=== PATIENT | female | born 1970 | race Caucasian/White ===

== ENCOUNTER 2017-02-16 19:26 | Emergency (ER) | payer SELFPAY ==
[~2017-02-16] VITALS: Ht 154.9 cm; Wt 80.0 kg
[~2017-02-16 19:26] MED LIST: IBUP600T26 PO; MOTR200T PO; ULTR50TA PO
[2017-02-16 19:28] VITALS: BP 153/94; PULSE 67; RESP 16; TEMP 98.9; O2SAT 98
[2017-02-16 20:28] VITALS: BP 166/90; PULSE 65; RESP 16; O2SAT 99
--- NOTE | 2017-02-16 20:55 | PD ---
HPI Chief Complaint: Skin Problem Time Seen by Provider: 20:22 Travel History International Travel<30 days: No Contact w/Intl Traveler<30days: No Traveled to known affect area: No History of Present Illness HPI patient states started feeling cheek soreness on sunday , then 2 days ago a red rash to cheeks, which is getting more intense and is only over cheeks...pt denies any fever/other rash in body/sore throat/shankar/cp/abdpain/n/v/d/.... no pcp denies allergies pmhx denies pshx c section PFSH Past Medical History Arthritis: No Anxiety: No Depression: Yes Heart Rhythm Problems: No Cancer: No Cardiovascular Problems: Yes High Cholesterol: No Chemotherapy: No Chest Pain: No Congestive Heart Failure: No Cerebrovascular Accident: No Endocrine: No Gastrointestinal Disorders: No Genitourinary: Yes Headaches: Yes Hypertension: No Immune Disorder: No Implanted Vascular Access Dvce: No Kidney Stones: Yes Musculoskeletal: Yes Neurologic: Yes Psychiatric: Yes Reproductive: No Respiratory: No Immunizations Current: Yes Migraines: No Radiation Therapy: No Renal Failure: No Seizures: No Tetanus Vaccination: < 5 Years Influenza Vaccination: No ?: Unknown Past Surgical History Abdominal Surgery: No Cardiac Surgery: No Ear Surgery: No Endocrine Surgery: No Eye Surgery: No Genitourinary Surgery: No Gynecologic Surgery: Yes (C SECTION) Neurologic Surgery: No Oral Surgery: No Pacemaker: No Thoracic Surgery: No Other Surgery: Yes Social History Alcohol Use: No Tobacco Use: No Substance Use: No Allergies-Medications (Allergen,Severity, Reaction): Coded Allergies: No Known Allergies (Unverified Adverse Reaction, Unknown, 02/16/17) Reported Meds & Prescriptions Reported Meds & Active Scripts Active No Active Prescriptions or Reported Medications Review of Systems Except as stated in HPI: all other systems reviewed are Neg General / Constitutional: No: Fever Eyes: No: Visual changes HENT: No: Headaches Cardiovascular: No: Chest Pain or Discomfort Respiratory: No: Shortness of Breath Gastrointestinal: No: Abdominal Pain Genitourinary: No: Dysuria Musculoskeletal: No: Pain Skin: Positive Rash Neurologic: No: Weakness Psychiatric: No: Depression Endocrine: No: Polydipsia Hematologic/Lymphatic: No: Easy Bruising Physical Exam Narrative GENERAL: SKIN: Warm and dry. erythematous/indurated rash over bilateral cheeks well demarcated and tt palpation HEAD: Atraumatic. Normocephalic. EYES: Pupils equal and round. No scleral icterus. No injection or drainage. ENT: No nasal bleeding or discharge. Mucous membranes pink and moist. no angioedema, stridor or wheezing...no hives elsewhere NECK: Trachea midline. No JVD. no lad CARDIOVASCULAR: Regular rate and rhythm. RESPIRATORY: No accessory muscle use. Clear to auscultation. Breath sounds equal bilaterally. GASTROINTESTINAL: Abdomen soft, non-tender, nondistended MUSCULOSKELETAL: Extremities without clubbing, cyanosis, or edema. No obvious deformities. NEUROLOGICAL: Awake and alert. No obvious cranial nerve deficits. Motor grossly within normal limits. Five out of 5 muscle strength in the arms and legs. Normal speech. PSYCHIATRIC: Appropriate mood and affect; insight and judgment normal. Data Data Last Documented VS Vital Signs Date Time Temp Pulse Resp B/P (MAP) Pulse Ox O2 Delivery O2 Flow Rate FiO2 02/16/17 20:28 65 16 166/90 (115) 99 Room Air 02/16/17 19:28 98.9 Orders Orders Diphenhydramine (Benadryl) (02/16/17 21:00) Famotidine (Pepcid) (02/16/17 21:00) Epinephrine (1:1000) Inj (Adrenalin (1:1 (02/16/17 21:00) MDM Medical Decision Making Medical Screen Exam Complete: Yes Emergency Medical Condition: Yes Medical Record Reviewed: Yes Differential Diagnosis cellulitis v erysipelas v impetigo Narrative Course due to the well demarcaded bilateral rash that is brightly erythematous it is more consistent with erysipelas rather than just plain cellulitis Diagnosis Primary Impression: Erysipelas Patient Instructions: Cellulitis (ED), General Instructions Departure Forms: Work Release Enter return to work date: Feb 18, 2017 Special Instructions: none, patient is cleared to return to work Scripts Penicillin V Potassium (Penicillin V Potassium) 500 Mg Tab 500 MG PO Q8H for Infection, #24 TAB 0 Refills Prov: Sheldon Fox MD 02/16/17 Disposition: 01 DISCHARGE HOME Condition: Stable Sheldon Fox MD Feb 16, 2017 20:55
[2017-02-16] MEDS ORDERED: PENI500T PO (20:59)
[2017-02-16] MEDS ORDERED: PENICILLIN V POTASSIUM 500 MG TAB PO ONE (21:00)
[2017-02-16] MEDS ORDERED: diphenhydrAMINE HCL 25 MG CAP PO ONE (21:00)
[2017-02-16] MEDS ORDERED: EPINEPHrine HCL (1:1000) 1 MG/ML VIAL IM ONE (21:00)
[2017-02-16] MEDS ORDERED: FAMOTIDINE 20 MG TAB PO ONE (21:00)
[2017-02-16 21:24] VITALS: BP 148/72; PULSE 88
== END 2017-02-16 21:36 | disposition home or self-care (01) ==
LOC: NEPD 19:26
DX: A46 Erysipelas (principal); F32.9 Major depressive disorder, single episode, unspecified; Z87.442 Personal history of urinary calculi
CPT/HCPCS: 96372; 99284; J0171